=== PATIENT | male | born 1975 | race Caucasian/White ===

== ENCOUNTER 2017-04-08 13:47 | Emergency (ER) | payer OTHER ==
[2017-04-08 13:52] VITALS: BP 133/87; PULSE 84; RESP 20; TEMP 98.9; O2SAT 98
[2017-04-08] MEDS ORDERED: LEXA20TA PO (13:57)
[2017-04-08] MEDS ORDERED: SODIUM CHLORIDE 0.9% FLUSH 10 ML FLUSH IVF PRN (14:15)
[2017-04-08] MEDS ORDERED: SODIUM CHLORID 0.9% 500 ML INJ 500 ML IV ONE (14:15)
[2017-04-08 14:17] LABS: AUTOMATED NEUTROPHIL # 5.6 TH/MM3 (1.8-7.7); BASOPHIL # 0.1 TH/MM3 (0-0.2); BASOPHIL % 0.6 % (0.0-2.0); EOSINOPHIL # 0.2 TH/MM3 (0-0.4); EOSINOPHIL % 2.3 % (0.0-4.0); HEMATOCRIT 43.1 % (39.0-51.0); HEMO FLAGS DIFF FINAL; LYMPH % 28.4 % (9.0-44.0); LYMPHOCYTE # 2.5 TH/MM3 (1.0-4.8); MEAN CELL VOLUME 88.2 FL (80.0-100.0); MEAN CORPUSCULAR HEMOGLOBIN 29.3 PG (27.0-34.0); MEAN CORPUSCULAR HGB CONC 33.2 % (32.0-36.0); MONO % 5.5 % (0.0-8.0); NEUT % 63.2 % (16.0-70.0); PLATELET COUNT 206 TH/MM3 (150-450); RED BLOOD COUNT 4.89 MIL/MM3 (4.50-5.90); RED CELL DISTRIBUTION WIDTH 12.4 % (11.6-17.2); WHITE BLOOD COUNT 8.9 TH/MM3 (4.0-11.0)
[2017-04-08 14:18] VITALS: O2SAT 97
[2017-04-08 14:19] VITALS: BP_SYST 131; BP_SYST 134; BP_DIAS 73; BP_DIAS 74; PULSE 74; RESP 20; O2SAT 96
--- NOTE | 2017-04-08 14:23 | PD ---
HPI Chief Complaint: Chest Pain Time Seen by Provider: 13:57 Travel History International Travel<30 days: No Contact w/Intl Traveler<30days: No Traveled to known affect area: No History of Present Illness HPI 42-year-old male came to the emergency room with history of left-sided chest discomfort, dizziness and generalized weakness since yesterday. 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 She says that he was diagnosed with sinobronchial infection 8 days ago and was started on Augmentin. He has been taking it every day like she supposed to and that seems to have relieved his cough and fever. However yesterday he started complaining of dizziness and not feeling too good. His dizziness was basically feeling of lightheadedness and near syncopal kind of experience. This morning he started having some chest discomfort. Patient says he has mitral valve prolapse that has been diagnosed since he was 7 years old and he always has some chest discomfort time to time. He went for his drill yesterday after which she started feeling sicker. Vital signs are stable. No history of syncopal episode. No history of shortness of breath. [facility] Past Medical History Narrative Medical List of his past medical, surgical, social and family history is reviewed from the nursing note. Cardiovascular Problems: Yes (MITRAL VALVE PROLAPSE) Social History Alcohol Use: No Tobacco Use: No Substance Use: No Allergies-Medications (Allergen,Severity, Reaction): Coded Allergies: No Known Allergies (Unverified , 04/15/17) Comments No known drug allergies. Reported Meds & Prescriptions Reported Meds & Active Scripts Active Reported Lexapro (Escitalopram Oxalate) 20 Mg Tab 20 Mg PO DAILY Narrative Medication List of his home medications reviewed from the nursing note. Review of Systems Except as stated in HPI: all other systems reviewed are Neg Cardiovascular: Positive: Chest Pain or Discomfort Neurologic: Positive: Weakness Physical Exam Narrative GENERAL: Awake, alert, anxious, mild distress SKIN: Focused skin assessment warm/dry. HEAD: Atraumatic. Normocephalic. EYES: Pupils equal and round. No scleral icterus. No injection or drainage. ENT: No nasal bleeding or discharge. Mucous membranes pink and moist. NECK: Trachea midline. No JVD. CARDIOVASCULAR: Regular rate and rhythm. No murmur appreciated. RESPIRATORY: No accessory muscle use. Clear to auscultation. Breath sounds equal bilaterally. GASTROINTESTINAL: Abdomen soft, non-tender, nondistended. Hepatic and splenic margins not palpable. MUSCULOSKELETAL: No obvious deformities. No clubbing. No cyanosis. No edema. NEUROLOGICAL: Awake and alert. No obvious cranial nerve deficits. Motor grossly within normal limits. Normal speech. PSYCHIATRIC: Appropriate mood and affect; insight and judgment normal. Data Data Last Documented VS Orders Orders Electrocardiogram (04/08/17 14:08) Basic Metabolic Panel (Bmp) (04/08/17 14:08) Complete Blood Count With Diff (04/08/17 14:08) Magnesium (Mg) (04/08/17 14:08) Prothrombin Time / Inr (Pt) (04/08/17 14:08) Troponin I (04/08/17 14:08) Chest, Single Ap (04/08/17 14:08) Ecg Monitoring (04/08/17 14:08) Bilateral Bp Monitoring (04/08/17 14:08) Iv Access Insert/Monitor (04/08/17 14:08) Oximetry (04/08/17 14:08) Oxygen Administration (04/08/17 14:08) Sodium Chloride 0.9% Flush (Ns Flush) (04/08/17 14:15) Sodium Chlorid 0.9% 500 Ml Inj (Ns 500 M (04/08/17 14:15) Potassium Chloride (Kcl) (04/08/17 15:45) Ed Discharge Order (04/08/17 15:32) Labs Laboratory Tests Test 04/08/17 14:10 White Blood Count 8.9 TH/MM3 Red Blood Count 4.89 MIL/MM3 Hemoglobin 14.3 GM/DL Hematocrit 43.1 % Mean Corpuscular Volume 88.2 FL Mean Corpuscular Hemoglobin 29.3 PG Mean Corpuscular Hemoglobin Concent 33.2 % Red Cell Distribution Width 12.4 % Platelet Count 206 TH/MM3 Mean Platelet Volume 7.7 FL Neutrophils (%) (Auto) 63.2 % Lymphocytes (%) (Auto) 28.4 % Monocytes (%) (Auto) 5.5 % Eosinophils (%) (Auto) 2.3 % Basophils (%) (Auto) 0.6 % Neutrophils # (Auto) 5.6 TH/MM3 Lymphocytes # (Auto) 2.5 TH/MM3 Monocytes # (Auto) 0.5 TH/MM3 Eosinophils # (Auto) 0.2 TH/MM3 Basophils # (Auto) 0.1 TH/MM3 CBC Comment DIFF FINAL Differential Comment Prothrombin Time 12.2 SEC Prothromb Time International Ratio 1.1 RATIO Blood Urea Nitrogen 19 MG/DL Creatinine 0.87 MG/DL Random Glucose 109 MG/DL Calcium Level 8.5 MG/DL Magnesium Level 2.0 MG/DL Sodium Level 139 MEQ/L Potassium Level 3.4 MEQ/L Chloride Level 105 MEQ/L Carbon Dioxide Level 26.7 MEQ/L Anion Gap 7 MEQ/L Estimat Glomerular Filtration Rate 96 ML/MIN Troponin I LESS THAN 0.02 NG/ML MDM Medical Decision Making Medical Screen Exam Complete: Yes Emergency Medical Condition: Yes Medical Record Reviewed: Yes Interpretation(s) Twelve-lead EKG was reviewed by me. Normal sinus rhythm, left axis deviation, poor R-wave progression, LVH by voltage criteria, nonspecific ST-T wave changes. Heart rate of 75 bpm. Differential Diagnosis ACS, nonspecific chest pain, electrolyte abnormalities Narrative Course 2:22 PM patient was negative for orthostatic vital signs which I have done personally bedside. Awaiting for the blood test results and chest x-ray. I'll discharge him home if these are within normal limits. 2:33 PM blood test results are back and his potassium is mildly low. I'm giving him oral replacement for potassium. He had already a bolus of IV fluid bolus. I'm going to discharge him home. Procedures EKG Prior to Arrival: No Diagnosis Primary Impression: Atypical chest pain Additional Impression: Dehydration Referrals: Primary Care Physician Departure Forms: Tests/Procedures, Work Release Enter return to work date: Apr 11, 2017 Additional Instructions: Please return to the ER if condition worsens or any other new concerns. Otherwise follow-up with your primary care next couple days. Med/Other Pt SpecificInfo: Prescription(s) given, No Change to Meds Disposition: 01 DISCHARGE HOME Condition: Stable Viviana Middleton MD Apr 08, 2017 14:23
[2017-04-08 14:27] LABS: CHLORIDE 105 MEQ/L (98-107); POTASSIUM 3.4 MEQ/L (3.5-5.1); SODIUM (NA) 139 MEQ/L (136-145)
[2017-04-08 14:30] LABS: ANION GAP 7 MEQ/L (5-15); BICARBONATE 26.7 MEQ/L (21.0-32.0); BLOOD UREA NITROGEN 19 MG/DL (7-18); INTERNATIONAL NORMALIZED RATIO 1.1 RATIO; PROTHROMBIN TIME - PATIENT 12.2 SEC (9.8-11.6)
[2017-04-08 14:33] LABS: GLOMERULAR FILTRATION RATE 96 ML/MIN (>89)
--- NOTE | 2017-04-08 15:02 | RADRPT ---
EXAM DATE/TIME: 04/08/2017 14:30 [facility] COMPARISON: No previous studies available for comparison. INDICATIONS : Chest pain, short of breath MEDICAL HISTORY : Mitral valve prolapse SURGICAL HISTORY : None. ENCOUNTER: Initial ACUITY: 2 days PAIN SCORE: 8/10 LOCATION: Bilateral chest FINDINGS: A single view of the chest demonstrates the lungs to be symmetrically aerated without evidence of mas s, infiltrate or effusion. The cardiomediastinal contours are unremarkable. Osseous structures are intact. CONCLUSION: 1. No acute cardiopulmonary disease. Talat Lomas MD on April 08, 2017 at 15:00 Board Certified Radiologist. This report was verified electronically.
[2017-04-08 15:36] VITALS: BP 121/78; PULSE 64; RESP 20; O2SAT 100
[2017-04-08] MEDS ORDERED: POTASSIUM CHLORIDE 20 MEQ CONTROLLED RELEASE TAB PO ONE (15:45)
[2017-04-08] MEDS ORDERED: MECL-62 PO (15:50)
--- NOTE | 2017-04-09 18:47 | EKG ---
Date Performed: 04/08/2017 Time Performed: 13:52:58 PTAGE: 42 years EKG: Sinus rhythm VOLTAGE CRITERIA FOR LVH PROBABLE LATERAL MYOCARDIAL INFARCTION ABNORMAL ECG NO PREVIOUS TRACING DOCTOR: Saurav Cosby Interpretating Date/Time 04/09/2017 18:46:05
== END 2017-04-08 16:21 | disposition home or self-care (01) ==
LOC: PHED 13:47
DX: R07.89 Other chest pain (principal); E86.0 Dehydration; I34.1 Nonrheumatic mitral (valve) prolapse; R94.31 Abnormal electrocardiogram [ECG] [EKG]; Z79.899 Other long term (current) drug therapy
CPT/HCPCS: 71010; 80048; 83735; 84484; 85025; 85610; 93005; 96360; 99285; J7040

== ENCOUNTER 2017-04-15 19:41 | Emergency (ER) | payer OTHER ==
[~2017-04-15] VITALS: Ht 185.4 cm; Wt 11.3 kg
[~2017-04-15 19:41] MED LIST: LEXA20TA PO; MECL-62 PO
[2017-04-15 19:48] VITALS: BP 161/89; PULSE 79; RESP 18; TEMP 98.4; O2SAT 98
--- NOTE | 2017-04-15 20:03 | PD ---
HPI Chief Complaint: Dizziness Time Seen by Provider: 19:59 Travel History International Travel<30 days: No Contact w/Intl Traveler<30days: No Traveled to known affect area: No History of Present Illness HPI PATIENT OVER THE PAST WEEK OR SO HAS NOTED A "LUMP" ON TOP OF HIS HEAD, AND HE HAS FOUND THAT HE'S BEEN MORE DIZZY SINCE DISCOVERING ALL:NKDA PMHX:ON LEXAPRO FOR PTSD PSHX: LEFT KNEE AND LEFT FLANK SURGERY PFSH Past Medical History Cardiovascular Problems: Yes (MITRAL VALVE PROLAPSE) Social History Alcohol Use: No Tobacco Use: No Substance Use: No Allergies-Medications (Allergen,Severity, Reaction): Coded Allergies: No Known Allergies (Unverified , 04/15/17) Reported Meds & Prescriptions Reported Meds & Active Scripts Active Meclizine (Meclizine HCl) 25 Mg Tab 25 Mg PO TID PRN Reported Lexapro (Escitalopram Oxalate) 20 Mg Tab 20 Mg PO DAILY Review of Systems Except as stated in HPI: all other systems reviewed are Neg General / Constitutional: No: Fever Eyes: No: Visual changes HENT: Positive: Other (LUMP ON TOP OF HEAD AND DIZZINESS) Cardiovascular: No: Chest Pain or Discomfort Respiratory: No: Shortness of Breath Genitourinary: No: Dysuria Skin: No Rash Neurologic: No: Weakness Psychiatric: No: Depression Endocrine: No: Polydipsia Hematologic/Lymphatic: No: Easy Bruising Physical Exam Narrative GENERAL: SKIN: Warm and dry. HEAD: Atraumatic. Normocephalic. FIRM IRREGULAR MASS ON TOP OF SKULL, NO ERYTHEMA, NO STREAKING, NO FLUCTUANCE, NONMOBILE EYES: Pupils equal and round. No scleral icterus. No injection or drainage. ENT: No nasal bleeding or discharge. Mucous membranes pink and moist. NECK: Trachea midline. No JVD. CARDIOVASCULAR: Regular rate and rhythm. RESPIRATORY: No accessory muscle use. Clear to auscultation. Breath sounds equal bilaterally. GASTROINTESTINAL: Abdomen soft, non-tender, nondistended. MUSCULOSKELETAL: Extremities without clubbing, cyanosis, or edema. No obvious deformities. NEUROLOGICAL: Awake and alert. No obvious cranial nerve deficits. Motor grossly within normal limits. Five out of 5 muscle strength in the arms and legs. Normal speech. PSYCHIATRIC: Appropriate mood and affect; insight and judgment normal. Data Data Last Documented VS Vital Signs Date Time Temp Pulse Resp B/P (MAP) Pulse Ox O2 Delivery O2 Flow Rate FiO2 04/15/17 20:25 77 162/102 (122) 85 181/102 (128) 177/102 (127) 04/15/17 20:00 Room Air 04/15/17 19:48 98.4 18 98 Orders Orders Electrocardiogram (04/15/17 20:03) Ct Brain W/O Iv Contrast(Rout) (04/15/17 20:03) Orthostatic Vital Signs (04/15/17 20:03) Blood Glucose (04/15/17 20:03) MDM Medical Decision Making Medical Screen Exam Complete: Yes Emergency Medical Condition: Yes Medical Record Reviewed: Yes Interpretation(s) PULSE OX:97, ON RA, NORMAL, WITH GOOD PLETHWAVE ACCUCHECK NORMAL AT 109 EKG: NSR 75, IRBBB, SIG Q WAVES NOTED ON I/AVL ONLY, NO STEMI PATTERN NOTED ELSEWHERE Differential Diagnosis OSTEOMA V LIPOMA V MASS V DEHYDRATION V HYPOGLYCEMIA V DYSRHYTHMIA Narrative Course CT IS READ NORMAL BY RADIOLOGIST AND WITH NORMAL OCCIPITAL PROTRUBERANCE. NO ICH/BRAIN MASS NTOED.....NL GLUCOSE, NEG ORTHOSTASIS, EKG ABNORMAL BUT NONCONTRIBUTING. WILL D/C AND ADVISE [facility] TESTING [facility] LUMP Diagnosis Primary Impression: Scalp mass Additional Impression: SUSPECTED HYPERTENSION Patient Instructions: General Instructions, Soft Tissue Mass (ED) Additional Instructions: PLEASE FOLLOW UP WITH YOUR PRIMARY CARE FOR FURTHER TESTING OF THE LUMP ON TOP OF YOUR HEAD. WELL TO REPEAT BLOOD PRESSURES AND EVALUATE IF YOU HAVE A NEW DIAGNOSIS OF HYPERTENSION. ALTHOUGH TODAY'S MEASUREMENTS WERE HIGH IT IS NOT STANDARD OF CARE TO DIAGNOSE YOU WITH HYPERTENSION OUT OF A SINGLE VISIT AT THE EMERGENCY DEPARTMENT. CAT SCAN WAS NEGATIVE FOR BRAIN TUMORS OR BRAIN BLEED , THE LUMP APPEARS TO BE VERY CLOSE AND POSSIBLY ARISING FROM YOUR SKULL RATHER THAN MADE OF SUBCUTANEOUS FAT, AND IT DOES NOT APPEAR AN ABSCESS EITHER. Disposition: 01 DISCHARGE HOME Condition: Stable Eliud Boles MD Apr 15, 2017 20:03
[2017-04-15 20:25] VITALS: BP_SYST 162; BP_SYST 177; BP_SYST 181; BP_DIAS 102
--- NOTE | 2017-04-15 20:42 | RADRPT ---
EXAM DATE/TIME: 04/15/2017 20:17 [facility] COMPARISON: No previous studies available for comparison. INDICATIONS : Palpable mass on occipital region of head. Dizziness. RADIATION DOSE: 59.93 CTDIvol (mGy) MEDICAL HISTORY : Cardiovascular disease. SURGICAL HISTORY : None. ENCOUNTER: Initial ACUITY: 2 days PAIN SCALE: 2/10 LOCATION: occipital TECHNIQUE: Multiple contiguous axial images were obtained of the head. Using automated exposure control and adj ustment of the mA and/or kV according to patient size, radiation dose was kept as low as reasonably a chievable to obtain optimal diagnostic quality images. DICOM format image data is available electro nically for review and comparison. FINDINGS: CEREBRUM: The ventricles are normal for age. No evidence of midline shift, mass lesion, hemorrhage or acute in farction. No extra-axial fluid collections are seen. There are dural calcifications of the anterior fossa and at the right tentorium. POSTERIOR FOSSA: The cerebellum and brainstem are intact. The 4th ventricle is midline. The cerebellopontine angle i s unremarkable. EXTRACRANIAL: The visualized portion of the orbits is intact. SKULL: The calvaria is intact. No evidence of skull fracture. There is a normal external occipital protuber ance. CONCLUSION: Normal examination. [place] Oto[place] MD on April 15, 2017 at 20:39 Board Certified Radiologist. This report was verified electronically.
[2017-04-15 21:00] VITALS: BP 167/100
--- NOTE | 2017-04-16 19:03 | EKG ---
Date Performed: 04/15/2017 Time Performed: 20:12:02 PTAGE: 42 years EKG: Sinus rhythm MARKED LEFT AXIS DEVIATION LOW QRS VOLTAGE IN PRECORDIAL LEADS INCOMPLETE RIGHT BUNDLE BRANCH BLOCK VOLTAGE CRITERIA FOR LVH PROBABLE LATERAL MYOCARDIAL INFARCTION ABNORMAL ECG PREVIOUS TRACING : 04/08/2017 13.52 Compared to prior tracing no significant change DOCTOR: Aries Avilez Interpretating Date/Time 04/16/2017 19:02:15
== END 2017-04-15 22:14 | disposition home or self-care (01) ==
LOC: PHED 19:41
DX: R22.0 Localized swelling, mass and lump, head (principal); R42 Dizziness and giddiness; R94.31 Abnormal electrocardiogram [ECG] [EKG]; I34.1 Nonrheumatic mitral (valve) prolapse
CPT/HCPCS: 70450; 93005; 99285